=== PATIENT | male | born 1940 | race Native Hawaiian/Other Pacific Islander ===

== ENCOUNTER 2018-03-15 13:12 | Emergency (ER) | payer MEDICARE ==
[2018-03-15 13:30] VITALS: O2SAT 98
[2018-03-15] MEDS ORDERED: Lidocaine 1% Inj (20ml) INFIL ONE (13:32)
[2018-03-15] MEDS ORDERED: Lidocaine Hydrochloride 10 ML INJ ONE (13:43)
[2018-03-15] MEDS ORDERED: Tetanus/Diphtheria Toxoids 0.5 ml Syringe IM ONE ×2 (14:01→14:08)
--- NOTE | 2018-03-15 14:26 | C.PDOC ---
History Of Present Illness 77-year-old male, denies significant PMHx, presents to the emergency department s/p mechanical fall. Patient states he was standing on a ladder approximately 5- 6ft tall outside his house, when he slipped and fell backward, landing onto his left side and hurt his ankle, elbow and head. Patient denies loss of consciousness, headache, dizziness, chest pain, back pain, palpitations, neck pain, use of blood thinners. He does c/o laceration to left ear. Pt is unsure of tetanus vaccination status. Time Seen by Provider: 03/15/18 13:21 Chief Complaint (Nursing): Abnormal Skin Integrity History Per: Patient History/Exam Limitations: no limitations Current Symptoms Are (Timing): Still Present Quality Of Symptoms: Painful Severity: Mild Past Medical History Reviewed: Historical Data, Nursing Documentation, Vital Signs Vital Signs: Last Vital Signs Temp 98.1 F 03/15/18 16:19 Pulse 62 03/15/18 16:19 Resp 18 03/15/18 16:19 BP 141/68 03/15/18 16:19 Pulse Ox 98 03/15/18 16:19 - Medical History PMH: No Chronic Diseases Family History: States: No Known Family Hx - Social History Hx Alcohol Use: No Hx Substance Use: No - Immunization History Hx Tetanus Toxoid Vaccination: No Hx Influenza Vaccination: No Hx Pneumococcal Vaccination: No Review Of Systems ENT: Positive for: Other (left ear laceration ) Cardiovascular: Negative for: Chest Pain, Palpitations, Light Headedness Respiratory: Negative for: Shortness of Breath Gastrointestinal: Negative for: Nausea, Vomiting Musculoskeletal: Positive for: Arm Pain (elbow, left), Foot Pain (ankle, left) Neurological: Negative for: Weakness, Numbness, Headache, Dizziness Physical Exam - Physical Exam Appears: Well, Non-toxic, No Acute Distress Skin: Normal Color, Warm, Dry, No Rash Head: Laceration (2cm to left ear going through mid helix and antihelix, mild amount of cartilage is exposed), Other (No scalp contusions) Eye(s): bilateral: Normal Inspection, PERRL, EOMI Nose: Normal, No Deformity, No Tenderness Oral Mucosa: Moist Tongue: Normal Appearing Lips: Normal Appearing Neck: Normal, Normal ROM, No Midline Cervical Tenderness, No Paracervical Tenderness, No Step Off Deformity, Supple Chest: Symmetrical Cardiovascular: Rhythm Regular Respiratory: Normal Breath Sounds (equal sounds B/L), No Rales, No Rhonchi, No Wheezing Gastrointestinal/Abdominal: Normal Exam, Bowel Sounds, Soft, No Tenderness Extremity: Tenderness, No Pedal Edema, No Calf Tenderness, Capillary Refill (<2 seconds all digits ), No Deformity, No Swelling, Other (Left elbow: mild tenderness to palpation wtih small abrasion. Left ankle: mild tenderness to palpation and small abrasion. (+)tenderness to distal fibula/ankle .) Pulses: Left Dorsalis Pedis: Normal, Right Dorsalis Pedis: Normal Neurological/Psych: Oriented x3, Normal Speech, Normal Cognition, Normal Cranial Nerves, No Cerebellar Signs, Normal Motor, Normal Sensation ED Course And Treatment O2 Sat by Pulse Oximetry: 98 (RA) Pulse Ox Interpretation: Normal - Other Rad left ankle xray X-Ray: Interpreted by Me, Viewed By Me (no fx/dislocation) left elbow xray X-Ray: Interpreted by Me, Viewed By Me (no fx/dislocation, no posterior fat pad) left tib/fib xray X-Ray: Interpreted by Me, Viewed By Me (no fx/dislocation) - CT Scan/US ct head Other Rad Studies (CT/US): Read By Radiologist, Radiology Report Reviewed CT/US Interpretation: Accession No. : [id number]. Patient Name / ID : MERRITT FARLEY / [id number]. Exam Date : 03/15/2018 14:39:15 ( Approved ). Study Comment : Sex / Age : M / 77Y. Creator : Stevan Jaffe MD. Dictator : Stevan Jaffe MD. Immigration Associate : Windows Infrastructure Engineer : Stevan Jaffe MD. Approver2 : Report Date : 03/15/2018 15:35:57. My Comment : . This report is currently processing and HAS NOT BEEN OFFICIALLY SIGNED BY THE PHYSICIAN - ESTIMATED TIME OF APPROVAL IS 03/15/2018 15:42. PROCEDURE: CT HEAD WITHOUT CONTRAST. HISTORY: head injury after fall from ladder. COMPARISON: None available. TECHNIQUE: Axial computed tomography images were obtained through the head/brain without intravenous contrast. Radiation dose: Total exam DLP = 940.91 mGy-cm. This CT exam was performed using one or more of the following dose reduction techniques: Automated exposure control, adjustment of the mA and/or kV according to patient size, and/or use of iterative reconstruction technique. FINDINGS: HEMORRHAGE: No intracranial hemorrhage. BRAIN: No mass effect or edema. No atrophy or chronic microvascular ischemic changes. VENTRICLES: Unremarkable. No hydrocephalus. CALVARIUM: Unremarkable. PARANASAL SINUSES: Unremarkable as visualized. No significant inflammatory changes. MASTOID AIR CELLS: Unremarkable as visualized. No inflammatory changes. OTHER FINDINGS: None. IMPRESSION: No evidence of acute intracranial hemorrhage intracranial collection mass effect or midline shift. Progress Note: CT head, Xrays of left ankle, left elbow, and left tib/fib ordered and reviewed. Patient given PO tylenol and tetanus IM vaccination. Laceration repair done by me, patient tolerated well. Reevaluation Time: 16:00 Reassessment Condition: Improved (On reassessment patient is resting comfortably and states he feels better. CT scan and Xrays (-) for acute injuries. Patient instructed to return to ED in 2 days for wound check. Rxs for tylenol and keflex given. Patient understands he should return to ED if he has any concerning symptoms.) Laceration - Laceration Repair left ear Wound Length (In cm): 2cm Description Of Wound: Linear Wound Cleansed With: Sterile Saline Anesthesia: Lidocaine 1% (5ml ) Wound Examination: Irrigated With Saline, No FB With Wound Exploration Wound Closure: Suture Suture Technique And Material Used: Interrupted, Nylon (8 dermal ethilon 4.0 and 1 dermal vicryl 4.0 ), Vicryl (1 subcutaneous vicryl 4.0) Wound Complexity: Intermediate (2cm) Disposition Counseled Patient/Family Regarding: Studies Performed, Diagnosis, Need For Followup, Rx Given - Disposition Referrals: Sonia Hui MD [Staff Provider] - Disposition: HOME/ ROUTINE Disposition Time: 16:00 Condition: STABLE Additional Instructions: RETURN TO ER IN 48 HOURS FOR WOUND CHECK USE MEDICATIONS DIRECTED RETURN TO ER IF SYMPTOMS WORSEN Prescriptions: Acetaminophen [Tylenol 325mg tab] 650 mg PO Q6 PRN #30 tab PRN Reason: pain/fever Cephalexin [Keflex] 500 mg PO BID #14 capsule Instructions: Closed Head Injury (DC), Laceration Repair With Stitches (DC), Skin Abrasions (DC) Forms: [employer] (Peruvian) Print Language: BELGIAN - POA Present On Arrival: Falls Or Trauma - Clinical Impression Clinical Impression: Laceration of left ear, Closed head injury, Abrasions of multiple sites - Scribe Statement The provider has reviewed the documentation as recorded by the Scribe (Dolly Gamble) All medical record entries made by the Scribe were at my direction and personally dictated by me. I have reviewed the chart and agree that the record accurately reflects my personal performance of the history, physical exam, medical decision making, and the department course for this patient. I have also personally directed, reviewed, and agree with the discharge instructions and disposition.
[2018-03-15] MEDS ORDERED: Bacitracin 500 Units/gm Oint Foilpak UD TOP ONE (15:30)
--- NOTE | 2018-03-15 15:37 | CT ---
PROCEDURE: CT HEAD WITHOUT CONTRAST. HISTORY: head injury after fall from ladder COMPARISON: None available. TECHNIQUE: Axial computed tomography images were obtained through the head/brain without intravenous contrast. Radiation dose: Total exam DLP = 940.91 mGy-cm. This CT exam was performed using one or more of the following dose reduction techniques: Automated exposure control, adjustment of the mA and/or kV according to patient size, and/or use of iterative reconstruction technique. FINDINGS: HEMORRHAGE: No intracranial hemorrhage. BRAIN: No mass effect or edema. No atrophy or chronic microvascular ischemic changes. VENTRICLES: Unremarkable. No hydrocephalus. CALVARIUM: Unremarkable. PARANASAL SINUSES: Unremarkable as visualized. No significant inflammatory changes. MASTOID AIR CELLS: Unremarkable as visualized. No inflammatory changes. OTHER FINDINGS: None. IMPRESSION: No evidence of acute intracranial hemorrhage intracranial collection mass effect or midline shift.
[2018-03-15] MEDS ORDERED: Bacitracin 500 Units/gm Oint Foilpak UD ONE (15:49)
[2018-03-15 16:20] VITALS: BP 141/68; PULSE 62; RESP 18; TEMP 98.1
--- NOTE | 2018-03-15 16:35 | RAD ---
PROCEDURE: Left Ankle Radiographs. HISTORY: left ankle pain after fall COMPARISON: None FINDINGS: BONES: Normal. No fracture. There is calcaneal spur seen. JOINTS: Normal. No osteoarthritis. Ankle mortise maintained. Talar dome intact SOFT TISSUES: Normal. OTHER FINDINGS: None. IMPRESSION: No evidence of acute fracture or dislocation.
--- NOTE | 2018-03-15 16:36 | RAD ---
PROCEDURE: Radiographs of the left tibia and fibula. HISTORY: pain after fall COMPARISON: None available. TECHNIQUE: Frontal and lateral views obtained. FINDINGS: BONES: No fracture or destructive lesion. JOINT SPACES: Unremarkable. OTHER FINDINGS: There is approximately 5 millimeter linear shaped radiopaque foreign body in the posterior aspect of the left knee. IMPRESSION: No evidence of acute fracture or dislocation. Questionable radiopaque foreign body at the subcutaneous posterior aspect of the left knee. Please correlate clinically.
--- NOTE | 2018-03-15 16:40 | RAD ---
PROCEDURE: Radiographs of the left elbow. HISTORY: left elbow pain after fall COMPARISON: No prior. FINDINGS: BONES: Normal. No fracture. JOINTS: Normal. No osteoarthritis. SOFT TISSUES: Normal. JOINT EFFUSION: None. OTHER FINDINGS: None IMPRESSION: No radiographic evidence of acute fracture dislocation or significant joint effusion.
== END 2018-03-15 16:37 | disposition home or self-care (01) ==
LOC: C.ER 13:12
DX: S01.312A Laceration without foreign body of left ear, initial encounter (principal); S50.312A Abrasion of left elbow, initial encounter; S90.512A Abrasion, left ankle, initial encounter; W11.XXXA Fall on and from ladder, initial encounter; Y92.007 Garden or yard of unspecified non-institutional (private) residence as the place of occurrence of the external cause; Z23 Encounter for immunization